=== PATIENT | male | born 1950 | race Caucasian/White ===

== ENCOUNTER 2020-08-16 08:35 | Outpatient (CLI) | payer MEDICARE, SELFPAY ==
--- NOTE | 2020-08-17 11:12 | WPDNEUROLOGY ---
Neurology EEG Report General Information Date of Study: 08/16/20 TEST EEG DIAGNOSIS ongoing dementia with no specific medication as per se CONDITION OF RECORDING awake drowsy and sleep EEG NUMBER [id number] CLINICAL HISTORY ongoing dementia patient reported that his thinks he is having memory issues but he thinks is fine for being almost 72 years old EEG DESCRIPTION basic resting occipital frequency consists of low-voltage 11 to 13 hertz per second alpha mixed with large amount of low-voltage 15 to 21 hertz pers second beta activity. During drowsiness low-voltage beta activity is seen diffusely. Bilateral symmetrical sleep spindles are seen during sleep. Hyperventilation not done. Photic stimulation produced normal drive. Non paroxysmal. Nonfocal. Nonlateralizing. IMPRESSION No significant abnormalities noted in this low-voltage fast record, but mainly during sleep
== END 2020-08-16 08:36 | disposition home or self-care (01) ==
PROVIDERS: PCP Family Medicine; Visit Provider Psychiatry & Neurology Neurology
DX: F03.90 Unspecified dementia, unspecified severity, without behavioral disturbance, psychotic disturbance, mood disturbance, and anxiety (principal)
CPT/HCPCS: 95816

== ENCOUNTER 2023-07-16 00:09 | Day surgery (SDC) | payer MEDICARE, SELFPAY ==
[2023-06-17 13:54] VITALS: BMI 27.0
--- NOTE | 2023-07-14 11:33 | SUR.PREOP ---
Patient called regarding upcoming procedure. Reviewed preop instructions, appointment times, and procedure prep.
--- NOTE | 2023-07-14 19:21 | PM.HPGS ---
History of Present Illness History of Present Illness Consent: Risks, benefits, and alternatives have been discussed and questions answered. Patient agrees to proceed with procedure. Chief complaint: neoplasm screening Narrative: Laci Pradhan is a 73 year old male who is referred for colon cancer screening. he has had a cecal polyp removed 8 yrs ago. Review of Systems Review of Systems: All systems reviewed & are unremarkable except as noted in HPI and below PMFSH Past Medical History Medical History Adult BMI 27.0-27.9 kg/sq m Adult BMI 29.0-29.9 kg/sq m Anxiety BMI 28.0-28.9,adult Cutaneous skin tags Dementia Erectile dysfunction Erythematous skin nodule Insomnia Tobacco abuse Surgical History Surgical History H/O arthroscopic knee surgery H/O shoulder surgery History of appendectomy Family History Family History Father Hypertension Family history of coronary artery disease Other Family history of alcoholism Family history of bipolar disorder Social History Social History Smoking status: Current every day smoker Tobacco type: e-cigarettes/vaping Smoking end date: 06/14/10 Alcohol intake: current Substance use: former Substance use type: marijuana Living arrangements: with family Spiritual care concerns: No Meds Home Medications and Allergies Home Medications Medication Instructions Recorded Confirmed Type vitamin B complex (B 1 tablet PO DAILY 09/07/22 06/17/23 History Complex-Vitamin B12 tablet) alprazolam 0.5 mg tablet 0.5 mg PO TID PRN anxiety #90 tabs 05/11/23 06/17/23 Rx sildenafil 100 mg tablet 100 mg PO DAILY PRN sexual 05/11/23 06/17/23 Rx activity #30 tabs vitamin A 2,400 mcg capsule 2,400 mcg PO DAILY 05/11/23 06/17/23 History zaleplon 10 mg capsule 10 mg PO QHS PRN sleep #30 caps 05/11/23 06/17/23 Rx cholecalciferol (vitamin D3) 125 125 mcg PO DAILY #1 tablet 05/14/23 06/17/23 Rx mcg (5,000 unit) tablet pravastatin 20 mg tablet 40 mg PO DAILY hyperlipidemia #180 06/29/23 07/16/23 Rx tabs Allergies Allergy/AdvReac Type Severity Reaction Status Date / Time Penicillins Allergy Unknown Rash Verified 07/16/23 08:21 Exam Const: General: alert Orientation/consciousness: patient oriented x3 Resp: Auscultation: clear to auscultation bilaterally Cardio: Rhythm: regular rhythm GI: GI Palp: Yes Soft to palpation and No Tenderness to palpation present (GI) Neuro: General: patient oriented x3 Assessment and Plan Assessment and plan (1) Colon cancer screening: Code(s): Z12.11 - Encounter for screening for malignant neoplasm of colon Status: Acute Assessment and Plan: Colonoscopy with possible biopsy or polypectomy or cautery or injection of substances.
[2023-07-16 08:22] VITALS: BP 113/73; PULSE 96; RESP 20; TEMP 36.3; O2SAT 98; BMI 26.3
[2023-07-16] MEDS: LACTATED RINGERS 1,000 ML 150 ML IV CONT (08:30)
--- NOTE | 2023-07-16 09:25 | WPDANESEPPF ---
Anes - Initial Pre Proc Eval Procedure: Operation Date: 07/16/23 09:30 Proposed Procedures p Screening Colonoscopy - Faustino Ryan MD Date/Time: 07/16/23 09:25 Surgeon: Faustino Ryan MD Pre Op Diagnosis: neoplasm screening Patient Data Age: 73 Gender: M Height: 1.85 m Weight: 90.5 kg Last Vital Signs Temp 97.3 F L 07/16/23 08:22 Pulse 96 07/16/23 08:22 Resp 20 07/16/23 08:22 BP 113/73 07/16/23 08:22 Pulse Ox 98 07/16/23 08:22 O2 Del Method Room Air 07/16/23 08:22 Allergies Allergy/AdvReac Type Severity Reaction Status Date / Time Penicillins Allergy Unknown Rash Verified 07/16/23 08:21 Home Medications Medication Instructions Recorded Confirmed Type vitamin B complex (B 1 tablet PO DAILY 09/07/22 06/17/23 History Complex-Vitamin B12 tablet) alprazolam 0.5 mg tablet 0.5 mg PO TID PRN anxiety #90 tabs 05/11/23 06/17/23 Rx sildenafil 100 mg tablet 100 mg PO DAILY PRN sexual 05/11/23 06/17/23 Rx activity #30 tabs vitamin A 2,400 mcg capsule 2,400 mcg PO DAILY 05/11/23 06/17/23 History zaleplon 10 mg capsule 10 mg PO QHS PRN sleep #30 caps 05/11/23 06/17/23 Rx cholecalciferol (vitamin D3) 125 125 mcg PO DAILY #1 tablet 05/14/23 06/17/23 Rx mcg (5,000 unit) tablet pravastatin 20 mg tablet 40 mg PO DAILY hyperlipidemia #180 06/29/23 07/16/23 Rx tabs Patient hx anesthesia problems: none Family hx anesthesia problems: none Results Review: All pre-operative results and documents have been reviewed as part of the pre-operative evaluation. [facility] Past Medical History Medical History Adult BMI 27.0-27.9 kg/sq m Adult BMI 29.0-29.9 kg/sq m Anxiety BMI 28.0-28.9,adult Cutaneous skin tags Dementia Erectile dysfunction Erythematous skin nodule Insomnia Tobacco abuse Surgical History Surgical History H/O arthroscopic knee surgery H/O shoulder surgery History of appendectomy Family History Family History Father Hypertension Family history of coronary artery disease Other Family history of alcoholism Family history of bipolar disorder Social History Social History Smoking status: Current every day smoker Tobacco type: e-cigarettes/vaping Smoking end date: 06/14/10 Alcohol intake: current Substance use: former Substance use type: marijuana Living arrangements: with family Spiritual care concerns: No Anes - Eval Final PreProcedure Day of Procedure 07/16/23 09:25 Patient weight: normal Heart: regular rate and rhythm Lungs: clear to auscultation Neurological: alert and oriented Last oral intake: >/= 8 hours ASA classification: II Emergent: no Anesthetic plan: proceed Anesthesia type and monitoring: general GIVS and standard monitoring Results Review: All pre-operative results and documents have been reviewed as part of the pre-operative evaluation. Informed Consent: The patient's anesthetic plan and its attendant risks and benefits were discussed with the patient/family/POA. Questions were solicited and answers provided to the satisfaction of the patient/family/POA.
[2023-07-16 09:53] VITALS: BP 91/65; PULSE 90; RESP 22; O2SAT 96
[2023-07-16 10:03] VITALS: BP 101/65; PULSE 76; RESP 20; O2SAT 99
[2023-07-16 10:13] VITALS: BP 114/64; PULSE 70; RESP 20; O2SAT 99
== END 2023-07-16 10:18 | disposition home or self-care (01) ==
PROVIDERS: PCP Family Medicine; Visit Provider Internal Medicine Gastroenterology
PROC: 0DJD8ZZ Inspection of Lower Intestinal Tract, Via Natural or Artificial Opening Endoscopic (ICD-10-PCS; CPT 45378; principal; 2023-07-16 09:30)
DX: Z12.11 Encounter for screening for malignant neoplasm of colon (principal); K57.30 Diverticulosis of large intestine without perforation or abscess without bleeding; K64.8 Other hemorrhoids; Z86.010 Personal history of colon polyps; G47.00 Insomnia, unspecified; F12.90 Cannabis use, unspecified, uncomplicated
CPT/HCPCS: G0105; J7120

== ENCOUNTER 2023-09-21 09:43 | Outpatient (CLI) | payer MEDICARE, SELFPAY | END 2023-09-21 09:44 | disposition home or self-care (01) | LOC: ANHAUDIO 09:43 | PROVIDERS: PCP Family Medicine; Visit Provider Physician Assistant | DX: H65.191 Other acute nonsuppurative otitis media, right ear (principal); H90.3 Sensorineural hearing loss, bilateral; H93.11 Tinnitus, right ear | CPT/HCPCS: 92557; 92567 ==